=== PATIENT | female | born 1990 | race Hispanic/Latino ===

== ENCOUNTER 2021-06-13 10:00 | Outpatient (RCR) | payer OTHER, SELFPAY ==
--- NOTE | 2021-06-06 15:53 | PTOPEVAL ---
INITIAL PHYSICAL THERAPY EVALUATION and PLAN OF CARE Thank you for referring Cammy Stokes to [facility] Cammy is scheduled to be seen for physical therapy? 1x/week - once every 2 wks for 6 weeks. Please review, sign, date and return this plan of care SHUKRI. I agree with and certify that the following plan of care is medically necessary. Referring Physician Date Admitting Provider: Attending Provider: Jannette Tate MD Referring Provider: *PT Outpatient Evaluation Start: 06/06/21 14:33 Freq: Status: Active Protocol: Document 06/06/21 14:35 STEFFANIE (Rec: 06/06/21 15:52 STEFFANIE [id number]) Therapy Assessment Status Assessment Status Assessment Status Evaluation Outpatient Past Medical History Past Medical History No Past Medical/Surgical History Patient/Family Denies Significant Past Medical/ Surgical History Evaluation Information Problem Diagnosis stress incontinence - female Onset 3 years ago Subjective Information No problems with urinary Query Text:As Reported By Patient/ leakage after 1st child - Family almost 5 yrs ago, but after 2nd child who is 3 - has had urinary leakage. Increase leakage with jump rope, also leaks with cough, sneeze. If has urge - sometimes will leak on way to bathroom. Will have some leakage with lifting younger son. Will also have some leakage when doing laundry - carrying baskets upstairs. Prior Level of Function Activity Level (Last 3 Months) Occupation stay at home mom Hand Dominance Right Medications Home Meds (Include: OTC, RX, Vitamins, none Herbals, Dose, Route,and Frequency) Query Text:Home Med Entries Will No Longer Recall From Past Visits. Home Meds Must Be Re-entered With Each Visit. Home Setting Home Type Multiple Levels Living Situation With Minor Child,With Spouse Mobility Assistive Devices (Used Last 3 None Months) Comments Additional Prior Level of Function laundry in basement Comments Pain Assessment Timing of Pain Assessment Timing of Pain Assessment Assessment Self Report Self Report Pain Level 0 Pain Score Pain Score 0: Self Report Cervical and Lumbar ROM Lumbar ROM Lumbar ROM WNL Normal Lumbar Segmental Motion Yes Lower Extremity Range of Motion Hip Range of
--- NOTE | 2021-06-30 14:16 | PCPTNOTE ---
Patient did not show up for scheduled appointment this date. Phone call made. Pt forgot about appointment. Tried to schedule another appointment in [facility] - nothing is available until July. Pt did not want to go to [facility]. She is to try jump rope, running - see how she does with urinary leakage. Will follow up with phone call next week.
--- NOTE | 2021-07-19 08:22 | PCPTNOTE ---
PHYSICAL THERAPY DISCHARGE SUMMARY Admitting Provider: Attending Provider: Jannette Tate MD Patient:Cammy Stokes Date of :1990 Cammy has not returned for any further treatments since 06/30/2021, therefore she will be discharged at this time. Cammy?s initial visit was on 06/06/2021 14:00 and she had a total of 2 visits. Cammy missed her 06/30/2021 appointment. Follow up phone call was made, she was doing well with HEP but had not tried jumping rope. Running was going better, less leakage. Another follow up phone call was made 07/07/2021 - message was left for her to call me if she had any questions. Cammy did not return the phone call. The goals have been partially met. Reassessment was not able to be done. Thank you for referring Cammy to [facility]. Please review, sign, date and return this discharge summary SHUKRI. I have been updated about Cammy's current status and I agree with discharge from the above service at this time. Referring Physician Date
== END 2021-07-19 17:27 | disposition home or self-care (01) ==
LOC: ANHHIPT 10:00
PROVIDERS: PCP Obstetrics & Gynecology Gynecology; Visit Provider Obstetrics & Gynecology Gynecology
DX: N39.3 Stress incontinence (female) (male) (principal)
CPT/HCPCS: 97110; 97161